=== PATIENT | male | born 1935 | race Caucasian/White ===

== ENCOUNTER 2022-06-07 15:33 | Emergency (ER) | payer MEDICARE, BC ==
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
== END 2022-06-07 15:51 | disposition left against medical advice (07) ==
LOC: ER 15:33
DX: Z53.21 Procedure and treatment not carried out due to patient leaving prior to being seen by health care provider (principal)